=== PATIENT | male | born 1970 | race Caucasian/White ===

== ENCOUNTER → 2023-06-28 08:59 | Outpatient (REF) | payer OTHER, SELFPAY | LOC: DHCBS HW 08:59 | PROVIDERS: ATTENDING PHYSICIAN Internal Medicine Cardiovascular Disease; FAMILY PHYSICIAN Family Medicine | DX: I49.3 Ventricular premature depolarization (principal) | CPT/HCPCS: 93306 ==

== ENCOUNTER → 2025-02-05 07:15 | Outpatient (REF) | payer OTHER, SELFPAY | LOC: RCS 07:15 | PROVIDERS: ATTENDING PHYSICIAN Internal Medicine Cardiovascular Disease; FAMILY PHYSICIAN Internal Medicine | DX: I10 Essential (primary) hypertension (principal); D3A.8 Other benign neuroendocrine tumors | CPT/HCPCS: 93306; 93356 ==